=== PATIENT | male | born 1990 | race Caucasian/White ===

== ENCOUNTER 2021-06-26 13:07 | Emergency (ER) | payer BC ==
[~2021-06-26] VITALS: Ht 177.8 cm; Wt 118.0 kg
[2021-06-26 13:07] VITALS: BP 169/93
[2021-06-26 13:34] VITALS: BP 169/93
[2021-06-26] MEDS ORDERED: IBUP-2213 PO (13:37)
[2021-06-26] MEDS ORDERED: PHEN177S23 PO (13:37)
--- NOTE | 2021-06-26 13:56 | NUR ---
NO NURSING CARE GIVEN. Patient discharged with v/s stable. Written and verbal after care instructions given and explained. Patient alert, oriented and verbalized understanding of instructions. Ambulatory with steady gait. All questions addressed prior to discharge. ID band removed. Patient advised to follow up with PMD. Rx of CHLORASEPTIC, MOTRIN given. Patient educated on indication of medication including possible reaction and side effects. Opportunity to ask questions provided and answered.
== END 2021-06-26 13:56 | disposition home or self-care (01) ==
LOC: MED 13:07
DX: B34.9 Viral infection, unspecified (principal); Z20.822 Contact with and (suspected) exposure to COVID-19
CPT/HCPCS: 87804; 99283